=== PATIENT | male | born 1995 | race Caucasian/White ===

== ENCOUNTER 2017-11-23 10:15 | Emergency (ER) | payer BC ==
[2017-11-23] MEDS ORDERED: IBUP-56 PO (10:25)
[2017-11-23] MEDS ORDERED: AMOX500T10 PO (10:25)
--- NOTE | 2017-11-23 10:27 | ER Report ---
History and Physical Time Seen By MD: 10:26 Hx. of Stated Complaint: PATIENT IS REPORTING DENTAL PAIN. HE REPORTS THAT HE IS IN THE PROCESS OF HAVING A ROOT CANAL ON THE RIGHT SIDE BUT THEY DENTIST COULDN'T FINISH THE PROCEDURE. HE IS NOT SCHEDULED TO RETURN TO THE DENTIST UNTIL 12/03/2017 HPI/ROS CHIEF COMPLAINT: dental pain. HISTORY OF PRESENT ILLNESS: This is a 22 year old male. He is having dental pain , right lower molar. Having a root cannal and second part will be in 10 days. He is on Amoxicillin. Taking Ibuprofen, no relief. Allergies: Coded Allergies: No Known Drug Allergies (Unverified , 09/07/11) Home Meds Active Scripts Hydrocodone Bit/Acetaminophen (HYDROCODON-ACETAMINOPHEN 5-325) 1 Each Tablet, 1 EACH PO Q4H Y for PAIN, #12 TAB 0 Refills Prov:BARBIE BARDALES MD 11/23/17 Reported Medications Ibuprofen (IBUPROFEN) 200 Mg Tablet, 2 TAB PO Q6H, TAB 11/23/17 Amoxicillin 500 Mg Tab (AMOXICILLIN 500 MG TAB) 500 Mg Tablet, 1 TAB PO Q8H, TAB 11/23/17 Reviewed Nurses Notes: Yes Hx Smoking: No Exposure to Second Hand Smoke?: No Hx Substance Use Disorder: No Hx Alcohol Use: No Constitutional Vital Sign - Last 24 Hours 11/23/17 11/23/17 10:20 10:51 Temp 97.6 Pulse 66 68 Resp 20 20 B/P (MAP) 144/87 138/75 (96) Pulse Ox 95 96 O2 Delivery Room Air Room Air Physical Exam General: Alert, no acute distress. Dental: Temporary filling is in place. Slight tenderness with percussion of the tooth. Medical Decision Making ED Course/Re-evaluation ED Course Will treat with oral pain medicine. Encouraged the patient to let his dentist know regarding the pain. Decision to Disposition Date: Nov 23, 2017 Decision to Disposition Time: 10:42 Depart Departure Latest Vital Signs Vital Signs Date Time Temp Pulse Resp B/P (MAP) Pulse Ox O2 Delivery O2 Flow Rate FiO2 11/23/17 10:51 68 20 138/75 (96) 96 Room Air 11/23/17 10:20 97.6 Impression: Primary Impression: Pain, dental Condition: Improved Disposition: HOME OR SELF-CARE Referrals: KIM DUMONT DO (PCP) New Scripts Hydrocodone Bit/Acetaminophen (HYDROCODON-ACETAMINOPHEN 5-325) 1 Each Tablet 1 EACH PO Q4H Y for PAIN, #12 TAB 0 Refills Prov: BARBIE BARDALES MD 11/23/17 Patient Instructions: Toothache (ED) Additional Instructions: Keep taking Ibuprofen for pain. Keep taking your amoxicillin as prescribed by your dentist. Take Lortab (hydrocodone/acetaminophen) 5/325, one every 4 hours as needed for severe pain. Be careful with the Lortab as it will make you drowsy. Do not take Tylenol (acetaminophen) if you are taking the Lortab because it has acetaminophen in it. Follow-up with your dentist as planned. BARBIE BARDALES MD Nov 23, 2017 10:26
[2017-11-23] MEDS ORDERED: LOR5/325 PO (10:47)
[2017-11-23 10:51] VITALS: BP 138/75
== END 2017-11-23 10:55 | disposition home or self-care (01) ==
LOC: ER 10:17
DX: K08.89 Other specified disorders of teeth and supporting structures (principal)
CPT/HCPCS: 99281